=== PATIENT | male | born 2000 | race Caucasian/White ===

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

== ENCOUNTER 2020-12-07 20:46 | Emergency (ER) | payer BC ==
[2020-12-07] MEDS ORDERED: DIPH,PERTUS(ACELL)TETVAC-LF 0.5 ML VIAL IM ONE (22:52)
[2020-12-07] MEDS ORDERED: IBUPROFEN 600 MG TAB PO STA (22:52)
--- NOTE | 2020-12-07 23:13 | XR ---
EXAMINATION TYPE: XR foot limited LT DATE OF EXAM: 12/07/2020 COMPARISON: NONE HISTORY: Pain TECHNIQUE: Two views are submitted. FINDINGS: The osseous structures are intact. There is no acute fracture or dislocation. Hypertrophic arthrop athy first MTP. IMPRESSION: 1. No acute fracture or dislocation. If symptoms persist, follow-up exam in 7 to 10 days could be ob tained.
--- NOTE | 2020-12-07 23:45 | ED ---
General Adult HPI - General Chief complaint: Skin/Abscess/Foreign Body Stated complaint: Nail in foot Time Seen by Provider: 12/07/20 22:35 Source: patient, family Mode of arrival: ambulatory Limitations: no limitations - History of Present Illness Initial comments: 20-year-old male presents to the emergency department for evaluation of puncture wound on the plantar surface of his left foot. Patient states he stepped on a nail that punctured the sole of his shoe while at work around 6:00 this evening. Patient complains of throbbing discomfort, but denies taking any medication prior to arrival. Reports pain is worsened with weight-bearing activity and probing. Uncertain of date of last tetanus shot, but believes it to be close to 10 years ago. Patient denies fever, chills, nausea, vomiting, calf pain, or range of motion deficit. - Related Data Previous Rx's Medication Instructions Recorded Ondansetron Odt [Zofran Odt] 4 mg PO Q12HR PRN #12 tab 03/18/19 Cephalexin [Keflex] 500 mg PO Q6HR 7 Days #28 cap 12/08/20 Ciprofloxacin HCl [Cipro] 500 mg PO Q12HR 7 Days #14 tablet 12/08/20 Ibuprofen 600 mg PO Q6H PRN #15 tab 12/08/20 Allergies Allergy/AdvReac Type Severity Reaction Status Date / Time No Known Allergies Allergy Verified 12/07/20 22:25 Review of Systems ROS Statement: Those systems with pertinent positive or pertinent negative responses have been documented in the HPI. ROS Other: All systems not noted in ROS Statement are negative. Past Medical History Past Medical History: No Reported History Additional Past Medical History / Comment(s): rt arm fracture History of Any Multi-Drug Resistant Organisms: None Reported Past Surgical History: Orthopedic Surgery Additional Past Surgical History / Comment(s): rt arm Past Psychological History: No Psychological Hx Reported Smoking Status: Never smoker Past Alcohol Use History: None Reported Past Drug Use History: None Reported General Exam Limitations: no limitations (Well-developed, well-nourished male in no acute distress. Initial temperature 98.4, pulse 64, respirations 22, blood pressure 137/68, pulse ox 97% on room air.) General appearance: alert, in no apparent distress Respiratory exam: Present: normal lung sounds bilaterally. Absent: respiratory distress, wheezes, rales, rhonchi, stridor Cardiovascular Exam: Present: regular rate, normal rhythm, normal heart sounds. Absent: systolic murmur, diastolic murmur, rubs, gallop, clicks Left Ankle exam: Present: normal inspection, full ROM. Absent: tenderness, swelling Foot/Toe exam: Present: full ROM, tenderness (Puncture wound to the plantar surface of the left foot in the metatarsal area). Absent: swelling Neurovascular tendon exam: Present: no vascular compromise. Absent: pulse deficit, abnormal cap refill, motor deficit, sensory deficit Neurological exam: Present: alert, oriented X3, CN II-XII intact Psychiatric exam: Present: normal affect, normal mood Skin exam: Present: warm, dry, normal color. Absent: rash Course Vital Signs 12/07/20 12/08/20 22:23 00:36 Temperature 98.4 F 97.9 F Pulse Rate 64 72 Respiratory 22 19 Rate Blood Pressure 137/68 127/74 O2 Sat by Pulse 97 98 Oximetry - Reevaluation(s) Reevaluation #1: 12/08/20 00:09 Puncture wound was irrigated with normal saline. Patient tolerated well. Dressing was applied. Wound care was reviewed extensively with patient and his mother. Medical Decision Making - Medical Decision Making 20-year-old male was evaluated for puncture wound to the plantar surface of the left foot in the first metatarsal region. Patient stepped on a jacquelyn nail that punctured the sole of his tennis shoe. Small puncture wound is noted upon exam; no active bleeding or obvious foreign body present. X-ray of the left foot was obtained with no significant findings. Patient was given a TDaP and the wound was cleansed and irrigated extensively. Home wound care instructions reviewed at length with patient and mother; they verbalized understanding. This case was discussed with my attending Dr. Kyle. Patient will be discharged home on dual antibiotic therapy with anti-pseudomonas coverage due to the nature of the injury. He is instructed to follow up with primary care provider for wound recheck in the next 1-2 days. Return parameters were discussed with patient and mother; they verbalized understanding and agreed with this plan. - Radiology Data Radiology results: report reviewed, image reviewed X-ray of the left foot was obtained. Report was reviewed in its entirety. Impression per Dr. Malhotra is no acute fracture or dislocation. Disposition Clinical Impression: Puncture wound of foot without foreign body Disposition: HOME SELF-CARE Condition: Stable Instructions (If sedation given, give patient instructions): Puncture Wound (ED) Additional Instructions: Cleanse wound twice daily with mild soap and water. May soak affected foot in Epsom salt bath with cleansings. Keep wound clean and dry; apply clean dressings when your foot will be in a shoe. Take antibiotics as directed. F/U with PRIMARY care provider for a recheck in the next 1-2 days. Monitor for signs of infection including redness, foul smelling drainage, or fever. Return to the emergency department with any new, worsening, or concerning symptoms. Prescriptions: Ciprofloxacin HCl [Cipro] 500 mg PO Q12HR 7 Days #14 tablet Ibuprofen 600 mg PO Q6H PRN #15 tab PRN Reason: Pain Cephalexin [Keflex] 500 mg PO Q6HR 7 Days #28 cap Is patient prescribed a controlled substance at d/c from ED?: No Referrals: Miryam Carter MD [Primary Care Provider] - 1-2 days Time of Disposition: 00:30
[2020-12-08 00:37] VITALS: BP 127/74; PULSE 72; RESP 19; TEMP 97.9
== END 2020-12-08 00:47 | disposition home or self-care (01) ==
LOC: EC 20:46
DX: S91.332A Puncture wound without foreign body, left foot, initial encounter (principal); W45.0XXA Nail entering through skin, initial encounter
CPT/HCPCS: 90471; 90715; 99283

== ENCOUNTER → 2021-01-08 | Outpatient (CLI) | payer BC ==
[~2021-01-08] MED LIST: SODIUM CHLORIDE 0.9% 500 ML 500 ML in EMPTY BAG 1 BAG IV PRN
[2021-01-08 07:50] VITALS: TEMP 98.2
[2021-01-08 07:56] LABS: HCT 48.1 % (39.0-53.0); HGB 17.1 gm/dL (13.0-17.5); Hyperchromasia Slight; MCH 31.3 pg (25.0-35.0); MCHC 35.5 g/dL (31.0-37.0); MCV 88.2 fL (80.0-100.0); Mean Platelet Volume 8.2; Platelet Count 215 k/uL (150-450); RBC 5.45 m/uL (4.30-5.90); WBC 5.2 k/uL (4.0-11.0)
[2021-01-08 15:26] VITALS: BP 133/73; PULSE 65; RESP 18
== END ==
LOC: PROCWHC3 07:13
PROVIDERS: ATTEND Internal Medicine Hematology & Oncology
DX: E83.110 Hereditary hemochromatosis (principal)
CPT/HCPCS: 85027; 99195

== ENCOUNTER → 2021-04-28 | Outpatient (CLI) | payer BC ==
[2021-04-28 15:51] LABS: HCT 48.2 % (39.0-53.0); MCH 30.7 pg (25.0-35.0); MCHC 35.3 g/dL (31.0-37.0); MCV 86.9 fL (80.0-100.0); Mean Platelet Volume 8.2; Platelet Count 200 k/uL (150-450); RBC 5.55 m/uL (4.30-5.90); RDW 12.9 % (11.5-15.5); WBC 7.1 k/uL (4.0-11.0)
== END | disposition home or self-care (01) ==
LOC: LABWHC1 15:20
PROVIDERS: ATTEND Internal Medicine Hematology & Oncology
DX: E83.119 Hemochromatosis, unspecified (principal)
CPT/HCPCS: 36415; 85027

== ENCOUNTER → 2021-05-07 | Outpatient (CLI) | payer BC ==
[2021-05-07 08:54] VITALS: TEMP 97.8
[2021-05-07 08:57] LABS: HGB 16.5 gm/dL (13.0-17.5); MCH 30.4 pg (25.0-35.0); MCHC 35.1 g/dL (31.0-37.0); MCV 86.5 fL (80.0-100.0); Mean Platelet Volume 8.7; Platelet Count 200 k/uL (150-450); RBC 5.43 m/uL (4.30-5.90); RDW 13.3 % (11.5-15.5); WBC 4.8 k/uL (4.0-11.0)
[2021-05-07 09:32] VITALS: BP 120/53; PULSE 71; RESP 16
== END ==
LOC: PROCWHC3 08:34
PROVIDERS: ATTEND Internal Medicine Hematology & Oncology
DX: E83.110 Hereditary hemochromatosis (principal)
CPT/HCPCS: 36415; 85027; 99195

== ENCOUNTER → 2022-08-29 | Outpatient (CLI) | payer BC ==
--- NOTE | 2022-08-29 07:50 | US ---
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 FINDINGS: EXAM MEASUREMENTS: Liver Length: 17.2 cm, normal less than 15.5 cm. Liver echotexture is homogenous. Gallbladder Wall: 0.3 cm CBD: 0.3 cm Right Kidney: 11.2 x 6.2 x 4.9 cm ASSISTANT MEDIA PLANNER NOTES: Pancreas: Obscured by bowel gas Liver: wnl Gallbladder: wnl Evidence for sonographic Noriega's sign: No CBD: wnl Right Kidney: wnl, lower pole gassed out IMPRESSION: 1. Hepatomegaly
== END | disposition home or self-care (01) ==
LOC: RADUSWWP 07:31
PROVIDERS: ATTEND Internal Medicine Hematology & Oncology
DX: E83.110 Hereditary hemochromatosis (principal); R16.0 Hepatomegaly, not elsewhere classified
CPT/HCPCS: 76705

== ENCOUNTER → 2024-01-02 | Outpatient (CLI) | payer BC ==
--- NOTE | 2024-01-03 16:26 | US ---
EXAMINATION TYPE: US liver DATE OF EXAM: 01/02/2024 COMPARISON: NONE CLINICAL INDICATION: Male, 23 years old with history of E83.110 HEREDITARY HEMOCHROMATOSIS; Hemochrom atosis TECHNIQUE: Grayscale and color Doppler imaging of the right upper quadrant was performed. FINDINGS: EXAM MEASUREMENTS: Liver Length: 14.8 cm Gallbladder Wall: .2 cm CBD: .3 cm Right Kidney: 11.8 x 4.8 x 5.7 cm HEDIS COORDINATOR NOTES: Pancreas: Obscured by bowel gas Liver: wnl Gallbladder: No stones seen Evidence for sonographic Noriega's sign: No CBD: wnl Right Kidney: No hydronephrosis or masses seen IMPRESSION: 1. Unremarkable right upper quadrant ultrasound [facility], , 01/03/2024 4:23 PM
== END | disposition home or self-care (01) ==
LOC: RADUSWWP 10:40
PROVIDERS: ATTEND Internal Medicine Hematology & Oncology
DX: E83.110 Hereditary hemochromatosis (principal)
CPT/HCPCS: 76705